=== PATIENT | female | born 1975 | race Caucasian/White ===

== ENCOUNTER 2018-10-19 18:23 | Emergency (ER) ==
[2018-10-19 18:31] VITALS: BP 163/124; TEMP 98; BMI 27.8
[2018-10-19] MEDS ORDERED: SODIUM CHLORIDE 1,000 ML IV STA (19:18)
[2018-10-19] MEDS ORDERED: ZOFRAN 4 MG/2 ML IVP STA ×2 (19:18→20:30)
--- NOTE | 2018-10-19 19:25 | ED.PDOC ---
General ED Provider: Dr. MARIA T IRELAND Chief Complaint: Nausea/Vomiting Stated Complaint: Patient is a 43 year old male who comes to the ER with complaints of nausea, vomiting and diarrhea for 3 weeks or more. She states that she was Unable to keep anything down but only kept gatorade down yesteray. She states that she has lost 10 pounds. Was supposed to be on metoformin but has been out for weeks. She has not see a Primary care doctor for over 2 years. per she is afraid to got the clinic or hospital because of coast. Time Seen by Physician: 19:22 Mode of Arrival: Walk-In Information Source: Family Nursing and Triage Documentation Reviewed and Agree: Yes Does patient meet sepsis criteria?: No System Inflammatory Response Syndrome: Not Applicable Sepsis Protocol: For patient's 13 years and over: Temp is 96.8 and below OR 101 and greater Pulse >90 BPM Resp >20/minute Acutely Altered Mental Status Are patient's symptoms suggestive of a new infection, such as: -Pneumonia -Skin, Soft Tissue -Endocarditis -UTI -Bone, Joint Infection -Implantable Device -Acute Abdominal Infection -Wound Infection -Meningitis -Blood Stream Catheter Infection -Unknown Review of Systems - Review Of Systems Constitutional: Reports: Malaise, Weakness, Loss of appetite Eyes: Reports: No symptoms Ears, Nose, Mouth, Throat: Reports: No symptoms Respiratory: Reports: No symptoms Cardiac: Reports: Lightheadedness GI: Reports: Nausea, Vomiting Musculoskeletal: Reports: Back pain (Chronic ) Neurological: Reports: Anxiety Endocrine: Reports: Increased thirst, Unexplained weight loss Hematologic/Lymphatic: Reports: No symptoms All Other Systems: Reviewed and Negative Past Medical History - Past Medical History Previously Healthy: Yes Endocrine: Reports: DM 2 Cardiovascular: Reports: None Respiratory: Reports: None Hematological: Reports: None Gastrointestinal: Reports: None Genitourinary: Reports: None Neuro/Psych: Reports: None Musculoskeletal: Reports: None Cancer: Reports: None Last Menstrual Period: none - Surgical History General Surgical History: Reports: Hysterectomy, , Hernia Repair - Family History Family History: Reports: Unknown - Social History Smoking Status: Never smoker Hx Substance Use: No Alcohol Screening: None Physical Exam - Physical Exam Appearance: Ill-appearing Ill-appearing: Moderate Pain Distress: None Eyes: KATRINA, EOMI, Conjunctiva clear ENT: Nose normal, Dry mucosa Respiratory: Airway patent, Breath sounds clear, Breath sounds equal, Respirations nonlabored Cardiovascular: Tachycardia GI/: Soft, Nontender, No masses, Bowel sounds normal, No Organomegaly Musculoskeletal: Normal strength Skin: Warm, Dry Neurological: Sensation intact, Motor intact, Alert, Oriented Psychiatric: Affect appropriate, Mood appropriate Critical Care Note - Critical Care Note Total Time (mins): 45 Course - Course Hematology/Chemistry: 10/19/18 19:38 10/19/18 19:38 Orders, Labs, Meds: Lab Review 10/19/18 10/19/18 10/19/18 18:36 19:35 19:38 WBC RBC Hgb Hct MCV MCH MCHC RDW Coeff of Yobani Plt Count Immature Gran % (Auto) Neut % (Auto) Lymph % (Auto) [place] % (Auto) Eos % (Auto) Baso % (Auto) Immature Gran # (Auto) Neut # (Auto) Lymph # (Auto) [place] # (Auto) Eos # (Auto) Baso # (Auto) Sodium Potassium Chloride Carbon Dioxide Anion Gap BUN Creatinine Estimated GFR (MDRD) BUN/Creatinine Ratio Glucose Hemoglobin A1c 9.47 H D Calcium Total Bilirubin AST ALT Alkaline Phosphatase Total Protein Albumin Globulin Albumin/Globulin Ratio Amylase Lipase Urine Color Yellow Urine Clarity Slightly Urine pH 6.0 Ur Specific [place] 1.025 Urine Protein Trace Urine Glucose (UA) Negative Urine Ketones 4+ Urine Blood Trace-intact Urine Nitrite Positive Urine Bilirubin Negative Urine Urobilinogen 2.0 Ur Leukocyte Esterase 2+ Urine Microscopic RBC 2-5 Urine Microscopic WBC 5-10 Ur Squamous Epith Cells 5-10 Amorphous Sediment 1+ Urine Bacteria 2+ Acetone, Qual Trace 10/19/18 10/19/18 19:38 19:38 WBC 11.60 H RBC 4.71 Hgb 13.3 Hct 40.0 MCV 84.9 MCH 28.2 MCHC 33.3 RDW Coeff of Yobani 12.7 Plt Count 201 Immature Gran % (Auto) 0.6 Neut % (Auto) 79.7 Lymph % (Auto) 16.1 [place] % (Auto) 3.4 Eos % (Auto) 0.1 Baso % (Auto) 0.1 Immature Gran # (Auto) 0.1 Neut # (Auto) 9.2 H Lymph # (Auto) 1.9 [place] # (Auto) 0.4 Eos # (Auto) 0.0 Baso # (Auto) 0.0 Sodium 137.4 Potassium 3.20 L Chloride 100.3 Carbon Dioxide 28.7 Anion Gap 11.60 BUN 7.5 Creatinine 0.44 L Estimated GFR (MDRD) 157.00 BUN/Creatinine Ratio 17.04 Glucose 303.5 H Hemoglobin A1c Calcium 8.37 L Total Bilirubin 0.64 AST 19.1 ALT 14.9 Alkaline Phosphatase 71.0 Total Protein 5.96 L Albumin 3.47 L Globulin 2.49 Albumin/Globulin Ratio 1.39 Amylase 36.3 Lipase < 10.0 L Urine Color Urine Clarity Urine pH Ur Specific [place] Urine Protein Urine Glucose (UA) Urine Ketones Urine Blood Urine Nitrite Urine Bilirubin Urine Urobilinogen Ur Leukocyte Esterase Urine Microscopic RBC Urine Microscopic WBC Ur Squamous Epith Cells Amorphous Sediment Urine Bacteria Acetone, Qual Orders Category Date Time Status ED IV/MEDIPORT/POWERPORT .ONCE EMERGENCY 10/19/18 19:18 Active ACETONE, QUALITATIVE Stat LAB 10/19/18 19:38 Completed AMYLASE Stat LAB 10/19/18 19:38 Completed CBC W/ AUTO DIFF Stat LAB 10/19/18 19:38 Completed COMPREHENSIVE METABOLIC PANEL Stat LAB 10/19/18 19:38 Completed HEMOGLOBIN A1C Stat LAB 10/19/18 19:35 Completed LIPASE Stat LAB 10/19/18 19:38 Completed URINALYSIS C & S IF INDICATED Stat LAB 10/19/18 18:36 Completed URINE CULTURE Stat LAB 10/19/18 18:36 Received 0.9 % Sodium Chloride [Saline Flush] MEDS 10/19/18 19:18 Ordered 1 syr IVF PRN PRN Ceftriaxone/D5w 1 gm Premix [Rocephin 1 gm Premix] 1 gm MEDS 10/19/18 19:50 Discontinued Premix 50 ml D5w 1 bag IV ONCE Ceftriaxone/D5w 1 gm Premix [Rocephin 1 gm Premix] 50 MEDS 10/19/18 20:03 Discontinued ml IV .STK-MED Ondansetron HCl/Pf [Zofran 4 mg/2 ml] MEDS 10/19/18 19:18 Discontinued 4 mg IVP ONCE STA Ondansetron HCl/Pf [Zofran 4 mg/2 ml] MEDS 10/19/18 20:30 Discontinued 4 mg IVP ONCE STA Sodium Chloride 0.9% [Sodium Chloride] 1,000 ml MEDS 10/19/18 19:18 Discontinued IV BOLUS Medications Generic Name Dose Route Start Last Admin Trade Name Freq PRN Reason Stop Dose Admin Sodium Chloride 1 syr 10/19/18 19:18 10/19/18 20:34 Saline Flush IVF 1 syr PRN PRN Administration To flush IV Discontinued Medications Generic Name Dose Route Start Last Admin Trade Name Freq PRN Reason Stop Dose Admin Sodium Chloride 1,000 mls @ 1,000 mls/hr 10/19/18 19:18 10/19/18 19:29 Sodium Chloride IV 10/19/18 20:17 1,000 mls/hr BOLUS STA Administration CEFTRIAXONE/D5W 1 GM PREMIX 1 50 mls @ 75 mls/hr 10/19/18 19:50 10/19/18 20: 05 gm/ Dextrose IV 10/19/18 20:29 75 mls/hr ONCE STA Administration Ondansetron HCl 4 mg 10/19/18 19:18 10/19/18 19:29 Zofran 4 Mg/2 Ml IVP 10/19/18 19:19 4 mg ONCE STA Administration Ondansetron HCl 4 mg 10/19/18 20:30 10/19/18 20:34 Zofran 4 Mg/2 Ml IVP 10/19/18 20:31 4 mg ONCE STA Administration Vital Signs: Temp Pulse Resp BP Pulse Ox 10/19/18 18:23 98.0 F 120 H 18 163/124 H 95 Departure - Departure Time of Disposition: 21:27 Disposition: HOME SELF-CARE Discharge Problem: Nausea, Vomiting UTI (urinary tract infection) Qualifiers: Urinary tract infection type: acute cystitis Hematuria presence: with hematuria Qualified Code(s): N30.01 - Acute cystitis with hematuria Hyperglycemia due to type 2 diabetes mellitus Qualifiers: Diabetes mellitus mcfp insulin use: without intermodal customer service use Qualified Code(s ): E11.65 - Type 2 diabetes mellitus with hyperglycemia Instructions: Urinary Tract Infection in Women (ED), Type 2 Diabetes in the Older Adult (ED), Diabetes and Nutrition (ED) Condition: Fair Pt referred to PMD for follow-up: Yes IPMP verified?: No Additional Instructions: Take medications as prescribed Follow up with the CLINIC in 2-3 days return if worse. Prescriptions: Cephalexin [Keflex] 500 mg PO Q8HR #30 capsule Metformin HCl 500 mg PO DAILY #90 tablet Ondansetron HCl [Zofran Tab] 4 mg PO Q8H PRN #14 tablet PRN Reason: Nausea / Vomiting Allergies/Adverse Reactions: Allergies No Known Allergies Allergy (Unverified 12/21/15 09:20) Home Medications: Ambulatory Orders Cephalexin [Keflex] 500 mg PO Q8HR #30 capsule 10/19/18 Metformin HCl 500 mg PO DAILY #90 tablet 10/19/18 Ondansetron HCl [Zofran Tab] 4 mg PO Q8H PRN #14 tablet 10/19/18 Disposition Discussed With: Patient, Family
[2018-10-19] MEDS ORDERED: ROCEPHIN 1 GM PREMIX 1 GM in PREMIX 50 ML D5W 1 BAG IV STA (19:50)
[2018-10-19] MEDS ORDERED: ROCEPHIN 1 GM PREMIX 50 ML IV ONE (20:03)
== END 2018-10-19 21:40 | disposition home or self-care (01) ==
LOC: ED 18:23
DX: N30.01 Acute cystitis with hematuria (principal); E11.65 Type 2 diabetes mellitus with hyperglycemia; R11.2 Nausea with vomiting, unspecified
CPT/HCPCS: 36415; 80053; 81001; 82009; 82150; 83036; 83690; 85025; 87086; 87186; 96361; 96365; 96375; 96376; 99283

== ENCOUNTER 2021-05-05 15:21 | Inpatient (IN) ==
--- NOTE | 2021-05-05 15:37 | ED.PDOC ---
General ED Provider: Dr. MARIA T IRELAND Chief Complaint: Nausea/Vomiting Stated Complaint: Patient is a 46 year old female who was seen here for similar complaints comes back with nausea vomiting but denies any abdominal pain. states unable to keep anything down. Time Seen by Provider: 05/05/21 15:25 Mode of Arrival: Walk-In Information Source: Patient Nursing and Triage Documentation Reviewed and Agree: Yes Does patient meet sepsis criteria?: No System Inflammatory Response Syndrome: Not Applicable Sepsis Protocol: For patient's 13 years and over: Temp is 96.8 and below OR 101 and greater Pulse >90 BPM Resp >20/minute Acutely Altered Mental Status Are patient's symptoms suggestive of a new infection, such as: -Pneumonia -Skin, Soft Tissue -Endocarditis -UTI -Bone, Joint Infection -Implantable Device -Acute Abdominal Infection -Wound Infection -Meningitis -Blood Stream Catheter Infection -Unknown Review of Systems Review Of Systems Constitutional: Reports No symptoms Eyes: Reports No symptoms Ears, Nose, Mouth, Throat: Reports No symptoms Respiratory: Reports No symptoms Cardiac: Reports No symptoms GI: Reports Nausea and Vomiting; Denies Abdominal pain Musculoskeletal: Reports No symptoms Skin: Reports No symptoms Neurological: Reports Anxiety Endocrine: Reports No symptoms Hematologic/Lymphatic: Reports No symptoms All Other Systems: Reviewed and Negative [facility] Medical History Diabetes mellitus Hypertension Surgical History History of gastrointestinal surgery Status post hysterectomy Female Reproductive History Menstrual Hx Hysterectomy: Yes Hx Tubal Ligation: No Physical Exam Physical Exam Appearance: Reports Ill-appearing Ill-appearing: Moderate Pain Distress: None Eyes: Reports Conjunctiva clear ENT: Reports Nose normal and Oropharynx normal Neck: Not Examined Respiratory: Reports Airway patent, Breath sounds clear and Breath sounds equal Cardiovascular: Reports No rub, No murmur and Tachycardia GI/: Reports Soft, Nontender and No masses Musculoskeletal: Reports Normal strength and ROM intact Skin: Reports Warm and Dry Neurological: Reports Sensation intact, Motor intact, Alert and Oriented Psychiatric: Reports Anxious Critical Care Note Critical Care Note Total Critical Care Time (mins): 40 Course Course Hematology/Chemistry: 05/05/21 15:50 05/05/21 15:50 Orders, Labs, Meds: Lab Review 05/05/21 05/05/21 15:50 15:50 WBC 15.33 H RBC 4.89 Hgb 13.2 Hct 39.5 MCV 80.8 L MCH 27.0 MCHC 33.4 RDW Coeff of Yobani 13.9 Plt Count 233 Immature Gran % (Auto) 0.7 Neut % (Auto) 76.6 H Lymph % (Auto) 17.6 [place] % (Auto) 5.0 Eos % (Auto) 0.0 Baso % (Auto) 0.1 Neut # (Auto) 11.8 H Lymph # (Auto) 2.7 [place] # (Auto) 0.8 Eos # (Auto) 0.0 Baso # (Auto) 0.0 Immature Gran # (Auto) 0.1 Sodium 143.5 Potassium 3.63 Chloride 106.6 Carbon Dioxide 23.1 D Anion Gap 17.43 BUN 13.5 Creatinine 0.67 Estimated GFR (MDRD) 95.00 BUN/Creatinine Ratio 20.14 Glucose 308.8 H Calcium 9.28 Total Bilirubin 0.68 AST 24.0 ALT 22.4 Alkaline Phosphatase 84.1 Total Protein 7.40 Albumin 4.62 Globulin 2.78 Albumin/Globulin Ratio 1.66 Amylase 46.1 Lipase 11.8 L Orders Category Date Time Status ED IV/MEDIPORT/POWERPORT .ONCE EMERGENCY 05/05/21 15:39 Active AMYLASE Stat LAB 05/05/21 15:50 Completed CBC W/ AUTO DIFF Stat LAB 05/05/21 15:50 Completed COMPREHENSIVE METABOLIC PANEL Stat LAB 05/05/21 15:50 Completed LIPASE Stat LAB 05/05/21 15:50 Completed MISCELLANEOUS SEND OUT Stat LAB 05/05/21 16:18 Ordered URINALYSIS C & S IF INDICATED Stat LAB 05/05/21 15:39 Uncollected 0.9 % Sodium Chloride [Saline Flush] MEDS 05/05/21 15:39 Ordered 1 syr IVF PRN PRN Labetalol HCl [Trandate] MEDS 05/05/21 16:03 Discontinued 20 mg IVP ONCE STA Pantoprazole Sodium [Protonix IV] MEDS 05/05/21 15:39 Discontinued 40 mg IVP ONCE STA Promethazine HCl [Phenergan 25 mg/ml Vial] MEDS 05/05/21 15:44 Discontinued 25 mg .ROUTE .STK-MED ONE Promethazine HCl [Phenergan 25 mg/ml Vial] 25 mg MEDS 05/05/21 15:39 Active 0.9 % Sodium Chloride [Sodium Chloride] 50 ml IV ONCE Ringers Lactated Solution [Lactated Ringers] 1,000 ml MEDS 05/05/21 15:39 Active IV BOLUS Medications Generic Name Dose Route Start Last Admin Trade Name Mckenna PRN Reason Stop Dose Admin Lactated Ringer's 1,000 mls @ 1,000 mls/hr 05/05/21 15:39 05/05/21 15:56 Lactated Ringers IV 05/05/21 16:38 1,000 mls/hr BOLUS STA Administration Promethazine HCl 25 mg/ Sodium 51 mls @ 75 mls/hr 05/05/21 15:39 05/05/21 15:51 Chloride IV 05/05/21 16:19 75 mls/hr ONCE STA Administration Sodium Chloride 1 syr 05/05/21 15:39 05/05/21 15:52 0.9% Sodium Chloride 10 Ml Disp.Syrin IVF 1 syr PRN PRN Administration To flush IV Discontinued Medications Generic Name Dose Route Start Last Admin Trade Name Mckenna PRN Reason Stop Dose Admin Labetalol HCl 20 mg 05/05/21 16:03 05/05/21 16:07 Labetalol Hcl 20 Mg/4 Ml Disp.Syrin IVP 05/05/21 16:04 20 mg ONCE STA Administration Pantoprazole Sodium 40 mg 05/05/21 15:39 05/05/21 15:52 Pantoprazole Sodium 40 Mg Vial IVP 05/05/21 15:40 40 mg ONCE STA Administration Vital Signs: Temp Pulse Resp BP Pulse Ox 05/05/21 15:25 97.7 F 120 H 18 229/111 H 99 Discharge Plan Discharge Prescriptions: No Action lisinopril 10 mg Tablet 10 mg PO DAILY 0RF ED Provider: MARIA T IRELAND Physician Progress Note: []
[2021-05-05] MEDS ORDERED: LACTATED RINGERS 1,000 ML IV STA (15:39)
[2021-05-05] MEDS ORDERED: PHENERGAN 25 MG/ML VIAL 25 MG in SODIUM CHLORIDE 50 ML IV STA (15:39)
[2021-05-05] MEDS ORDERED: PROTONIX IV IVP STA (15:39)
[2021-05-05] MEDS ORDERED: PHENERGAN 25 MG/ML VIAL ONE (15:44)
[2021-05-05 15:54] LABS: BASOPHILS % (AUTO) 0.1 % (0.0-3.0); HEMATOCRIT 39.5 % (37.0-47.0); HEMOGLOBIN 13.2 g/dl (12.0-16.0); IMMATURE GRANULOCYTE # (AUTO) 0.1 (0.0-1.0); IMMATURE GRANULOCYTE % (AUTO) 0.7 % (0.0-5.0); LYMPHOCYTES # (AUTO) 2.7 K/uL (0.60-3.4); LYMPHOCYTES % (AUTO) 17.6 (10.0-50.0); MEAN CORPUSCULAR HGB CONC 33.4 (31.8-35.4); MEAN CORPUSCULAR VOLUME 80.8 fl (81.0-99.0); MONOCYTES # (AUTO) 0.8 K/uL (0.4-2.0); NEUTROPHILS # (AUTO) 11.8 K/ul (2.0-6.9); NEUTROPHILS % (AUTO) 76.6 % (42.2-75.2); PLATELET COUNT 233 10^3/uL (140-440); RDW COEFFICIENT OF VARIATION 13.9 % (11.6-14.8); RED BLOOD COUNT 4.89 10^6/ul (4.20-5.40); WHITE BLOOD COUNT 15.33 K/ul (4.6-10.2)
[2021-05-05] MEDS ORDERED: TRANDATE IVP STA (16:03)
[2021-05-05 16:05] LABS: ALANINE AMINOTRANSFERASE 22.4 U/L (0-35); ALBUMIN 4.62 g/dL (3.5-5.0); ALKALINE PHOSPHATASE 84.1 U/L (38-126); AMYLASE 46.1 U/L (30-110); BILIRUBIN,TOTAL 0.68 mg/dL (0.2-1.3); BLOOD UREA NITROGEN 13.5 mg/dL (7-17); CALCIUM 9.28 mg/dL (8.4-10.2); CARBON DIOXIDE 23.1 mmol/L (22-30.0); CHLORIDE 106.6 mmol/L (98-107); CREATININE 0.67 mg/dL (0.60-1.30); GLUCOSE 308.8 mg/dL (74-106); LIPASE 11.8 U/L (23-300); POTASSIUM 3.63 mmol/L (3.5-5.1); SODIUM 143.5 mmol/L (134.5-145); TOTAL PROTEIN 7.4 g/dL (6.3-8.2)
[2021-05-05] MEDS ORDERED: VASOTEC IV IVP STA (17:05)
[2021-05-05] MEDS ORDERED: SODIUM CHLORIDE 1,000 ML IV STA (17:12)
[2021-05-05] MEDS ORDERED: TYLENOL PO PRN (17:29)
[2021-05-05] MEDS ORDERED: MORPHINE 2 MG/ML VIAL IVP PRN (17:29)
[2021-05-05] MEDS: D5%-NS-KCL 20 MEQ/L IV SOL 1,000 ML IV SCH (17:50)
[2021-05-05] MEDS: CARDENE 20 MG/200 ML NACL 20 MG/200 ML BAG IV SCH (17:50)
[2021-05-05] MEDS ORDERED: TRANDATE IV SCH (18:00)
[2021-05-05] MEDS ORDERED: SODIUM CHLORIDE IV SCH (18:00)
[2021-05-05 18:13] VITALS: BMI 31.2
[2021-05-05 18:40] LABS: BILIRUBIN,URINE Negative (NEGATIVE); CLARITY,URINE Clear (CLEAR); COLOR,URINE Yellow (YELLOW); GLUCOSE, URINE (UA) 2+ (NEGATIVE); KETONES,URINE 4+ (NEGATIVE); LEUKOCYTE ESTERASE ,URINE Negative (NEGATIVE); NITRITE,URINE Negative (NEGATIVE); PH,URINE 5.5 (5-9); PROTEIN,URINE 2+ (NEGATIVE); URINE, BLOOD Trace-intact (NEGATIVE); UROBILINOGEN,URINE 0.2 (0.2)
[2021-05-05 18:51] LABS: BACTERIA,URINE TRACE (NOT PRESENT); URINE RBC, MICROSCOPIC 0-2 (0-2)
[2021-05-05] MEDS: SODIUM CHLORIDE 1,000 ML IV SCH (20:15)
[2021-05-05] MEDS: ZESTRIL PO SCH (20:45)
[2021-05-05] MEDS: HUMULIN R SUBCUT PRN (20:46)
[2021-05-05 23:51] LABS: CREATINE KINASE 24.2 U/L (30-135)
[2021-05-06 00:04] LABS: TROPONIN I 0.013 ng/ml (0.0000-0.120)
[2021-05-06] MEDS ORDERED: VISTARIL PO ONE (00:47)
[2021-05-06] MEDS: VASOTEC IV IVP PRN (02:11)
[2021-05-06] MEDS: ZOFRAN 4 MG/2 ML IVP PRN ×2 (03:27→20:34)
[2021-05-06] MEDS ORDERED: HYDROCHLOROTHIAZIDE PO STA (03:58)
[2021-05-06] MEDS: D5%-NS-KCL 20 MEQ/L IV SOL 1,000 ML IV SCH ×4 (04:25→20:32)
[2021-05-06] MEDS: CARDENE 20 MG/200 ML NACL 20 MG/200 ML BAG IV SCH ×2 (05:50→09:59)
[2021-05-06 05:56] LABS: BASOPHILS % (AUTO) 0.1 % (0.0-3.0); HEMOGLOBIN 11.7 g/dl (12.0-16.0); IMMATURE GRANULOCYTE # (AUTO) 0.1 (0.0-1.0); IMMATURE GRANULOCYTE % (AUTO) 0.5 % (0.0-5.0); LYMPHOCYTES # (AUTO) 2.3 K/uL (0.60-3.4); LYMPHOCYTES % (AUTO) 16.9 (10.0-50.0); MEAN CORPUSCULAR HEMOGLOBIN 26.5 pg (27.0-31.0); MEAN CORPUSCULAR HGB CONC 32.5 (31.8-35.4); MEAN CORPUSCULAR VOLUME 81.6 fl (81.0-99.0); MONOCYTES # (AUTO) 0.6 K/uL (0.4-2.0); MONOCYTES % (AUTO) 4.4 (0-10); NEUTROPHILS # (AUTO) 10.6 K/ul (2.0-6.9); NEUTROPHILS % (AUTO) 78.1 % (42.2-75.2); PLATELET COUNT 191 10^3/uL (140-440); RDW COEFFICIENT OF VARIATION 14.1 % (11.6-14.8); RED BLOOD COUNT 4.41 10^6/ul (4.20-5.40)
[2021-05-06 06:07] LABS: CREATINE KINASE 31.4 U/L (30-135)
[2021-05-06 06:17] LABS: BLOOD UREA NITROGEN 10.5 mg/dL (7-17); CALCIUM 8.61 mg/dL (8.4-10.2); CARBON DIOXIDE 25.3 mmol/L (22-30.0); CHLORIDE 110.6 mmol/L (98-107); CREATININE 0.61 mg/dL (0.60-1.30); GLUCOSE 307.3 mg/dL (74-106); POTASSIUM 3.52 mmol/L (3.5-5.1); SODIUM 144.3 mmol/L (134.5-145)
[2021-05-06 06:23] LABS: TROPONIN I < 0.012 ng/ml (0.0000-0.120)
[2021-05-06] MEDS: HUMULIN R SUBCUT PRN ×3 (06:25→21:05)
[2021-05-06] MEDS ORDERED: REGLAN IVP ONE (08:03)
[2021-05-06] MEDS: SODIUM CHLORIDE 1,000 ML IV SCH ×3 (08:58→17:11)
[2021-05-06] MEDS ORDERED: ZESTRIL PO SCH (09:00)
[2021-05-06] MEDS: ZESTRIL PO SCH (10:22)
[2021-05-06] MEDS ORDERED: REGLAN ONE (13:17)
[2021-05-06] MEDS ORDERED: PROTONIX IV ONE (13:17)
[2021-05-06] MEDS: REGLAN IVP PRN (18:01)
[2021-05-06] MEDS ORDERED: TRANDATE ONE (18:16)
[2021-05-06] MEDS ORDERED: TRANDATE IVP ONE (20:50)
[2021-05-07] MEDS: REGLAN IVP PRN ×2 (03:00→09:05)
[2021-05-07] MEDS ORDERED: TRANDATE IVP ONE ×2 (04:08→06:07)
[2021-05-07] MEDS: D5%-NS-KCL 20 MEQ/L IV SOL 1,000 ML IV SCH ×2 (04:20→13:08)
[2021-05-07 05:19] LABS: BASOPHILS % (AUTO) 0.1 % (0.0-3.0); HEMATOCRIT 35.2 % (37.0-47.0); HEMOGLOBIN 11.5 g/dl (12.0-16.0); IMMATURE GRANULOCYTE # (AUTO) 0.1 (0.0-1.0); IMMATURE GRANULOCYTE % (AUTO) 0.6 % (0.0-5.0); LYMPHOCYTES # (AUTO) 2.3 K/uL (0.60-3.4); LYMPHOCYTES % (AUTO) 20.3 (10.0-50.0); MEAN CORPUSCULAR HEMOGLOBIN 26.8 pg (27.0-31.0); MEAN CORPUSCULAR HGB CONC 32.7 (31.8-35.4); MEAN CORPUSCULAR VOLUME 82.1 fl (81.0-99.0); MONOCYTES # (AUTO) 0.8 K/uL (0.4-2.0); MONOCYTES % (AUTO) 6.7 (0-10); NEUTROPHILS # (AUTO) 8.1 K/ul (2.0-6.9); NEUTROPHILS % (AUTO) 72.3 % (42.2-75.2); PLATELET COUNT 188 10^3/uL (140-440); RDW COEFFICIENT OF VARIATION 14.5 % (11.6-14.8); RED BLOOD COUNT 4.29 10^6/ul (4.20-5.40); WHITE BLOOD COUNT 11.26 K/ul (4.6-10.2)
[2021-05-07 05:31] LABS: BLOOD UREA NITROGEN 4.4 mg/dL (7-17); CALCIUM 8.38 mg/dL (8.4-10.2); CARBON DIOXIDE 28.2 mmol/L (22-30.0); CHLORIDE 108.6 mmol/L (98-107); CREATININE 0.54 mg/dL (0.60-1.30); GLUCOSE 316.6 mg/dL (74-106); POTASSIUM 3.22 mmol/L (3.5-5.1); SODIUM 142.5 mmol/L (134.5-145)
[2021-05-07] MEDS: HUMULIN R SUBCUT PRN ×4 (05:49→20:45)
--- NOTE | 2021-05-07 06:37 | PCM.PROG ---
Date Seen by Provider: 05/06/21 Time Seen by Provider: 09:00 Subjective: Admitted 05/05 for accelerated HTN and refractory vomiting. She feels better intermittently with medication. Objective: Vitals: T=99.1 F, P=106, R=12, FF=627/96, SPO2=94 HEENT: [WNL] Neck: [supple] Lungs: [clear] CVS: RRR , no m[] Abdomen: benign[] Extremities: [intact] Neurological: [intact] Skin: [wnl] Lab/Tests/Diagnostic Imaging: [refer to chart] (1) Accelerated hypertension: Status: Acute Code(s): I10 - Essential (primary) hypertension SNOMED Code(s): 12266514 Assessment: Tx has varied depending on the ability to keep down oral med. or not. BP is quite labile and easily approaches 200 sys. without intervention, HR can go to 120. Has been on cardene drip, nurses are going to try and convert her over to oral med, in the meantime will use IV labetalol prn. The HTN is a new problem and she needs a work-up for secondary hypertension and I think she should be transferred for this, she does not want that. I can outline an approach to sec ondary HTN, but I still think best to transfer her to a larger hospital. 1. R/O primary hyperaldosteronism - Renin and aldosterone levels could be ordered - send out tests. She does tend to run a low potassium which would be c/w that, although vomiting will lower K as well. 2. R/O fibromuscular dysplasia of renal arteries/Renal artery stenosis- MRA of renal arteries best test. Other option CTA or doppler US. Lisinopril will worsen BP in this type of patient. 3. R/O pheochromocytoma - 24 hour urine metanephrine, could do protein collection at the same time. 4. Less likely - [place] syndrome, thyroid disorder, ANGELA. (2) Nausea and vomiting: Status: Acute Code(s): R11.2 - Nausea with vomiting, unspecified SNOMED Code(s): 56860177 Assessment: This has been a challenge. Reglan works best, but still marginal results. PPI started. Part of problem is likely diabetic gastroparesis. (3) DM type 2 (diabetes mellitus, type 2): Status: Acute Code(s): E11.9 - Type 2 diabetes mellitus without complications SNOMED Code(s): 72262750 Assessment: Currently on a sliding scale. She has been a T2DM for about 10 years. Plan: Refractory HTN with N and V. I think best to transfer her to a larger hospital - have not ordered work-up because I am hoping she will change her mind and allow a transfer. Otherwise, continue current tx.
[2021-05-07] MEDS: PROTONIX IV IVP SCH ×2 (08:42→09:05)
[2021-05-07] MEDS: ZESTRIL PO SCH ×2 (08:45→09:15)
[2021-05-07] MEDS ORDERED: ZESTRIL PO STA (09:31)
[2021-05-07] MEDS: PHENERGAN 25 MG/ML VIAL 25 MG in SODIUM CHLORIDE 50 ML IV PRN ×2 (10:16→18:02)
[2021-05-07] MEDS: CARDENE 20 MG/200 ML NACL 20 MG/200 ML BAG IV SCH ×2 (10:19→20:10)
[2021-05-07] MEDS: [UNRECOGNIZED DRUG - MIXTURE] IV SCH ×3 (13:07→22:18)
[2021-05-07] MEDS: VASOTEC IV IVP PRN (17:01)
[2021-05-07] MEDS ORDERED: HYDRALAZINE HCL IVP ONE (17:45)
[2021-05-07] MEDS ORDERED: PHENERGAN 25 MG/ML VIAL ONE (17:54)
[2021-05-07] MEDS: TRANDATE PO SCH (18:02)
[2021-05-07] MEDS ORDERED: POTASSIUM CHLORIDE 20 MEQ VIAL- ADDITIVE ONLY IV ONE (22:12)
[2021-05-08] MEDS: HUMULIN R SUBCUT PRN ×4 (05:43→20:37)
[2021-05-08] MEDS ORDERED: POTASSIUM CHLORIDE 20 MEQ VIAL- ADDITIVE ONLY IV ONE (06:07)
[2021-05-08] MEDS: CARDENE 20 MG/200 ML NACL 20 MG/200 ML BAG IV SCH ×4 (06:09→21:53)
[2021-05-08] MEDS: [UNRECOGNIZED DRUG - MIXTURE] IV SCH ×2 (06:24→17:46)
[2021-05-08] MEDS: ZESTRIL PO SCH (08:48)
[2021-05-08] MEDS: TRANDATE PO SCH ×2 (08:48→20:36)
[2021-05-08] MEDS: PROTONIX IV IVP SCH (08:52)
[2021-05-08 10:10] LABS: BLOOD UREA NITROGEN 4.2 mg/dL (7-17); CALCIUM 7.9 mg/dL (8.4-10.2); CARBON DIOXIDE 30.7 mmol/L (22-30.0); CREATININE 0.53 mg/dL (0.60-1.30); GLUCOSE 288.6 mg/dL (74-106); MAGNESIUM 1.68 mg/dL (1.6-2.3); POTASSIUM 3.54 mmol/L (3.5-5.1)
--- NOTE | 2021-05-08 11:44 | US ---
EXAM: Renal ultrasound HISTORY: Resistant hypertension COMPARISON: None TECHNIQUE: Renal ultrasound was performed FINDINGS: Right kidney measures 4.5 x 3.9 x 9.2 cm. Left kidney measures 4.9 x 4.2 x 11.7 cm. Shirin l cortical echogenicity is normal. No hydronephrosis or renal calculus large enough to cause acousti c shadowing. Bladder grossly unremarkable. IMPRESSION: Sonographically normal kidneys.
--- NOTE | 2021-05-08 11:52 | US ---
EXAM: RENAL ARTERY ULTRASOUND HISTORY: Resistant hypertension. Fibromuscular dysplasia TECHNIQUE: Sonography of the renal vasculature and kidneys was performed. Callahan scale and color and spectral Doppler images were performed. Images were obtained and stored in a permanent archive. COMPARISON: None. FINDINGS: Right renal artery: - Ostium: PSV of 1.8 m/s. RA/AO ratio of 1.2. - Mid: PSV of 2.0 m/s. RA/AO ratio of 1.3. - Renal hilum: PSV of 0.8 m/s. RA/AO ratio of 0.5. - Arcuate: PSV of 0.3 m/s. RI of 0.61. Right renal vein: Patent. Pulsatile flow. Left renal artery: - Ostium: Not visualized due to gas. - Mid: Not visualized due to gas. - Renal hilum: PSV of 0.9 m/s. RA/AO ratio of 0.9. - Arcuate: PSV of 0.2 m/s. RI of 0.60. Left renal vein: Patent. Pulsatile flow. Aorta: Patent. PSV of 1.5 m/s. Diameter of 1.34 cm. IVC: Patent. Right Kidney: - Renal length: 9.2 cm. Left Kidney: - Renal length: 11.7 cm. IMPRESSION: - Limited study due patient's body habitus and presence of bowel gas. - Limited evaluation of the left renal artery. Elevated peak systolic velocity in the proximal and m id right renal artery. No tardus parvus waveforms. Normal ratio. Velocity can be seen with renal a rtery stenosis noting difficult study. CTA can be obtained for further evaluation as clinically adam cated.
[2021-05-08] MEDS: PHENERGAN 25 MG/ML VIAL 25 MG in SODIUM CHLORIDE 50 ML IV PRN (13:03)
--- NOTE | 2021-05-08 15:45 | CT ---
EXAM: CTA abdomen and pelvis without and with IV contrast HISTORY: Hypertension. TECHNIQUE: Multi-slice transaxial helical images of the abdomen and pelvis are acquiredwithout and f ollowing the administration of intravenous contrast according to a standard angiogram protocol. Yoanna nal and sagittal MIP images as well as 3-D volume rendered images are recreated from the source data. CT was performed using dose optimization techniques such as automated exposure control and/or mA/kV adjustment according to patient size. COMPARISON: CT abdomen pelvis 05/04/2021 FINDINGS: VASCULAR: The aorta is normal in caliber. No atherosclerosis. The origins of the celiac trunk, SMA, SUSSY and b oth renal arteries are patent. No stenosis in either renal artery. Bilateral iliac arteries are pat ent. Visualized bilateral femoral arteries are patent. Renal arteries and visualized renal veins ar e patent. NONVASCULAR: Liver: Possible hepatic steatosis. Correlation with LFTs recommended. Gallbladder: Not visualized may be small surgically absent. Bile ducts: No intra or extrahepatic biliary ductal dilatation. Pancreas: Atrophic changes. The main pancreatic duct is not dilated. Spleen: The spleen is not enlarged. Adrenal glands: Within normal limits. Kidneys: No hydronephrosis. No renal calculi. Hypodensities in both kidneys; right greater than le ft which can be seen with pyelonephritis versus infarcts. There is mild surrounding soft tissue stra nding. Correlation with lab values and physical exam recommended. Ureters: Within normal limits Urinary bladder: Within normal limits Reproductive organs: Hysterectomy. Peritoneum: No ascites or free intraperitoneal air. Gastrointestinal tract: Small hiatal hernia. Normal caliber. Right colonic wall thickening with gracia rounding inflammatory changes findings are concerning for colitis. Lymph nodes: No lymphadenopathy. Abdominal wall: Within normal limits. Osseous structures: No acute findings. Lower thorax: Trace bilateral pleural effusions with adjacent atelectatic changes and/or pneumonia. IMPRESSION: - No stenosis in either renal artery. Renal arteries and visualized renal veins are patent. - Hypodensities in both kidneys; right greater than left which can be seen with pyelonephritis versus infarcts. There is mild surrounding soft tissue stranding. Correlation with lab values and physica l exam recommended. - Right colonic wall thickening with surrounding inflammatory changes findings are concerning for col itis. - Trace bilateral pleural effusions with adjacent atelectatic changes and/or pneumonia. - Possible hepatic steatosis. Correlation with LFTs recommended. Communication: Findings in the impression were discussed with Dr. Whitman by Dr. Alvarado at 3:[address] scans are performed using dose optimization techniques as appropriate to the performed exam an d include at least one of the following: Automated exposure control, adjustment of the mA and/or kV according t o size, and the use of iterative reconstruction technique.
[2021-05-08] MEDS: D5%-NS-KCL 40 MEQ/L IV SOL 1,000 ML IV SCH ×2 (16:01→23:50)
[2021-05-08] MEDS: REGLAN IVP PRN (18:04)
--- NOTE | 2021-05-08 19:31 | PCM.PROG ---
Date Seen by Provider: 05/08/21 Time Seen by Provider: 12:00 Subjective: Date of admit 05/05/21. Feels about the same. Frequent GI upset and high BP. Objective: Vitals: T=98.6 F, P=121, R=18, SN=563/85, SPO2=94 HEENT: [WNL] Neck: supple[] Lungs: [clear] CVS: [RRR] Abdomen: [soft] Extremities: [intact] Neurological: [intact] Skin: [wnl] Lab/Tests/Diagnostic Imaging: [see chart] (1) Accelerated hypertension: Status: Acute Code(s): I10 - Essential (primary) hypertension SNOMED Code(s): 41235435 Assessment: Currently on cardene drip and some oral med, tends to vomit pills. BP under marginal control. Evalaution for secondary HTN - Renal US unremarkable, limited. CTA renal - no JENNIE or fibromuscular dysplasia reported. Renal parenchyma reveals infacts vs infxn. Renin and aldosterone tests pending. 24 hour urine for meta pending. (2) Nausea and vomiting: Status: Acute Code(s): R11.2 - Nausea with vomiting, unspecified SNOMED Code(s): 95199563 Assessment: Still with prone to emesis. Reglan helps. Likely diabetic gastroparesis. No gastric emptying studies done. (3) DM type 2 (diabetes mellitus, type 2): Status: Acute Code(s): E11.9 - Type 2 diabetes mellitus without complications SNOMED Code(s): 76759726 Assessment: Marginal control on a less than robust sliding scale. (4) Renal disorder: Status: Acute Code(s): N28.9 - Disorder of kidney and ureter, unspecified SNOMED Code(s): 45260471 Assessment: Renal parenchyma abnormal - infact vs pyelo, initial UA showed no infection, need to repeat. This may be contributing to the refractory HTN. She needs as nephrology/urology evaluation - will try and arrange a transfer. In case a clotting issue, should order echo to eval for cardiac thrombi. Start lovenox. Plan: Continue current management. Try and arrange a transfer. Spoke to [facility], they declined. Family would like [place].
[2021-05-08] MEDS: LOVENOX SUBCUT SCH (20:36)
--- NOTE | 2021-05-08 23:15 | PCM.PROG ---
Date Seen by Provider: 05/07/21 Time Seen by Provider: 09:30 Subjective: Denies new complaints. Continues to experience Nausea with po intake. No emesis today Objective: Vitals: T=99.0 F, P=101, R=16, TK=623/68, SPO2=95 HEENT: Clear Neck: Soft supple, Neg JVD/Neg HJR Lungs: CTA-Af CVS: HR RRR no murmur; peripheral pulses symmetrically full and equal Abdomen: Soft non tender Extremities: Neg edema Neurological: AAO X 3; No o=focal motor or sensory deficit Skin: wnl Lab/Tests/Diagnostic Imaging: pending (1) Accelerated hypertension: Status: Acute Code(s): I10 - Essential (primary) hypertension SNOMED Code(s): 93850822 (2) Nausea and vomiting: Status: Acute Code(s): R11.2 - Nausea with vomiting, unspecified SNOMED Code(s): 43544678 (3) DM type 2 (diabetes mellitus, type 2): Status: Acute Code(s): E11.9 - Type 2 diabetes mellitus without complications SNOMED Code(s): 94460374 (4) Renal disorder: Status: Acute Code(s): N28.9 - Disorder of kidney and ureter, unspecified SNOMED Code(s): 09688876 Plan: Review diagnostic testing\Additional therapy for tx Hypertension( IV Hydralazine) Consider Transfer for Nephrology,cardiology consult
[2021-05-09] MEDS: CARDENE 20 MG/200 ML NACL 20 MG/200 ML BAG IV SCH (04:30)
[2021-05-09] MEDS: REGLAN IVP PRN (05:30)
[2021-05-09] MEDS: HUMULIN R SUBCUT PRN ×3 (06:29→21:06)
[2021-05-09 07:57] LABS: BILIRUBIN,URINE Negative (NEGATIVE); CLARITY,URINE Clear (CLEAR); COLOR,URINE Yellow (YELLOW); GLUCOSE, URINE (UA) 2+ (NEGATIVE); KETONES,URINE 1+ (NEGATIVE); LEUKOCYTE ESTERASE ,URINE Trace (NEGATIVE); NITRITE,URINE Positive (NEGATIVE); PH,URINE 5.5 (5-9); PROTEIN,URINE Negative (NEGATIVE); URINE, BLOOD Negative (NEGATIVE)
[2021-05-09 08:08] LABS: BACTERIA,URINE 4+ (NOT PRESENT)
[2021-05-09] MEDS: PROTONIX IV IVP SCH (08:27)
[2021-05-09] MEDS: ZESTRIL PO SCH (08:27)
[2021-05-09] MEDS: TRANDATE PO SCH ×2 (08:27→21:06)
[2021-05-09] MEDS: LOVENOX SUBCUT SCH (08:27)
[2021-05-09] MEDS: D5%-NS-KCL 40 MEQ/L IV SOL 1,000 ML IV SCH ×2 (09:09→22:28)
[2021-05-09] MEDS: ROCEPHIN 1 GM/50 ML D5W 1 GM/50 ML BAG IV SCH (10:58)
[2021-05-09] MEDS: COZAAR PO SCH ×2 (11:07→21:06)
--- NOTE | 2021-05-09 12:02 | ECHO2D ---
Date of Exam: 05/09/2021 Ordering Physician: DR. BOYKIN/ HOSPITALIST Room #: [id number] Reason for Echo: UNCONTROLLED HTN M-Mode Normal Adult Results LV Dimensions Normal Adult Results AoV Opening excursions >1.6 >1.6 LVEDD-base- 3.5-5.8 4.1 Ao root dimensions 2.0-3.7 2.7 LVESD-base- 3.1-4.6 L. Atrium dimensions 1.9-3.8 4.0 Post. Wall thickness 0.8-1.1 1.2 IV septum (thickness) 0.7-1.2 1.7 Post. Wall excursion 0.72-1.3 NORMAL Septal motion NORMAL Systolic motion R. Ventricular cavity 1.5-2.0 NORMAL LVEF 60% 68% Paradoxical septal wall motion NORMAL 2-D : 2-D M Mode Echocardiogram was performed using apical four chamber and left parasternal long and short axis views. Mitral, tricuspid and aortic valves appear to be normal. Contractility of the left ventricle seems to be normal, so is the cavity size. ENLARGED LEFT ATRIAL CAVITY SIZE. Aortic root appears to be normal. There is no pericardial effusion. There is no thrombus noted in the left ventricle or left atrial cavity. M-MODE: MV: NORMAL AV: NORMAL TV: NORMAL PV: CHAMBER SIZE: ENLARGED LEFT ATRIAL CAVITY WALL MOTION: NORMAL PERICARDIUM: NORMAL INTERPRETATION: 1. LEFT VENTRICLE HYPERTROPHY BORDERLINE WITH BORDERLINE LEFT ATRIAL CAVITY ENLARGEMENT 2. NORMAL VALVES 3. NORMAL LEFT VENTRICLE CONTRACTILITY AND LEFT VENTRICLE SIZE MTDD
[2021-05-09] MEDS: REGLAN PO SCH ×2 (16:29→21:06)
[2021-05-09] MEDS: CATAPRES PO PRN (17:27)
--- NOTE | 2021-05-09 20:32 | PCM.PROG ---
Date Seen by Provider: 05/09/21 Time Seen by Provider: 15:00 Subjective: Date of admit 05/05/21 She feels better, no vomiting, no pain. Objective: Vitals: T=98.7 F, P=96, R=16, FQ=513/85, SPO2=97 HEENT: [wnl] Neck: [WNL Lungs: [WNL] CVS: WNL[] Abdomen: [soft] Extremities: [intact] Neurological: intact[] Skin: wnl[] Lab/Tests/Diagnostic Imaging: charted[] (1) Accelerated hypertension: Status: Acute Code(s): I10 - Essential (primary) hypertension SNOMED Code(s): 55792261 Assessment: BP under better control, been able to stop IV BP med, monitor (2) Nausea and vomiting: Status: Acute Code(s): R11.2 - Nausea with vomiting, unspecified SNOMED Code(s): 63877515 Assessment: Resolved, eating, no vomiting, reglan po, diabetic gastroparesis (3) DM type 2 (diabetes mellitus, type 2): Status: Acute Code(s): E11.9 - Type 2 diabetes mellitus without complications SNOMED Code(s): 39427662 Assessment: Moderate BS control, she was on no med prior to admit, needs to meet with menhaden vessel pilot, insulin instructions (4) Renal disorder: Status: Acute Code(s): N28.9 - Disorder of kidney and ureter, unspecified SNOMED Code(s): 78044537 Assessment: Discussed with harness maker today, likely had ischemic infarcts from severe HTN, cardiac echo neg, no need for anticoagulant, did not need to transfer, just adjust med Plan: Transition to oral med for HTN and GI. Tomorrow check on any pending tests, may be able to be d/c tomorrow.
[2021-05-10] MEDS: CATAPRES PO PRN (05:11)
[2021-05-10 05:44] LABS: HEMATOCRIT 33.3 % (37.0-47.0); HEMOGLOBIN 10.7 g/dl (12.0-16.0); IMMATURE GRANULOCYTE % (AUTO) 0.4 % (0.0-5.0); LYMPHOCYTES # (AUTO) 2.6 K/uL (0.60-3.4); LYMPHOCYTES % (AUTO) 31.1 (10.0-50.0); MEAN CORPUSCULAR HEMOGLOBIN 26.7 pg (27.0-31.0); MEAN CORPUSCULAR HGB CONC 32.1 (31.8-35.4); MONOCYTES # (AUTO) 0.6 K/uL (0.4-2.0); MONOCYTES % (AUTO) 6.8 (0-10); NEUTROPHILS # (AUTO) 5.2 K/ul (2.0-6.9); NEUTROPHILS % (AUTO) 61.7 % (42.2-75.2); PLATELET COUNT 148 10^3/uL (140-440); RDW COEFFICIENT OF VARIATION 14.4 % (11.6-14.8); RED BLOOD COUNT 4.01 10^6/ul (4.20-5.40); WHITE BLOOD COUNT 8.49 K/ul (4.6-10.2)
[2021-05-10] MEDS: REGLAN PO SCH ×2 (05:54→11:34)
[2021-05-10 06:03] LABS: ALANINE AMINOTRANSFERASE 34.6 U/L (0-35); ALBUMIN 3.21 g/dL (3.5-5.0); ALKALINE PHOSPHATASE 65.8 U/L (38-126); ASPARTATE AMINO TRANSFERASE 24.1 U/L (14-36); BILIRUBIN,TOTAL 0.83 mg/dL (0.2-1.3); CALCIUM 8.14 mg/dL (8.4-10.2); CARBON DIOXIDE 26.9 mmol/L (22-30.0); CHLORIDE 103.7 mmol/L (98-107); CREATININE 0.61 mg/dL (0.60-1.30); GLUCOSE 128.1 mg/dL (74-106); POTASSIUM 3.35 mmol/L (3.5-5.1); SODIUM 136.4 mmol/L (134.5-145); TOTAL PROTEIN 5.59 g/dL (6.3-8.2)
[2021-05-10] MEDS ORDERED: PROTONIX PO SCH (06:30)
[2021-05-10] MEDS: COZAAR PO SCH (08:12)
[2021-05-10] MEDS: ROCEPHIN 1 GM/50 ML D5W 1 GM/50 ML BAG IV SCH (08:12)
[2021-05-10] MEDS: TRANDATE PO SCH (08:12)
[2021-05-10] MEDS: CARDENE 20 MG/200 ML NACL 20 MG/200 ML BAG IV SCH (08:12)
[2021-05-10] MEDS ORDERED: NORVASC PO ONE (10:56)
[2021-05-10] MEDS: HUMULIN R SUBCUT PRN (12:37)
[2021-05-10 14:28] VITALS: BP 140/86; TEMP 97.9
--- NOTE | 2021-05-10 15:38 | PCM.DC ---
Final Diagnosis: Final dx: Accelerated hypertension with secondary renal infarction. Diabetic gastroparesis and GERD. Uncontrolled T2 diabetes Date of admit- 05/05/21 Date of discharge - 05/10/21 Physical Exam Appearance: Well-appearing and Obese Ill-appearing: None Pain Distress: None Eyes: KATRINA ENT: Oropharynx normal Neck: Supple Respiratory: Airway patent and Breath sounds clear Cardiovascular: RRR and Pulses normal GI/: Soft and Nontender Musculoskeletal: Normal strength and ROM intact Skin: Warm and Dry Neurological: Sensation intact, Motor intact and Alert Psychiatric: Affect appropriate and Mood appropriate (1) Accelerated hypertension: Status: Acute Code(s): I10 - Essential (primary) hypertension SNOMED Code(s): 24074661 (2) Nausea and vomiting: Status: Acute Code(s): R11.2 - Nausea with vomiting, unspecified SNOMED Code(s): 17018934 (3) DM type 2 (diabetes mellitus, type 2): Status: Acute Code(s): E11.9 - Type 2 diabetes mellitus without complications SNOMED Code(s): 91231882 (4) Renal disorder: Status: Acute Code(s): N28.9 - Disorder of kidney and ureter, unspecified SNOMED Code(s): 81964693 (5) Diabetic gastroparesis: Status: Acute Code(s): E11.43 - Type 2 diabetes mellitus with diabetic autonomic (poly)neuropathy; K31.84 - Gastroparesis SNOMED Code(s): 740905429 Reason for Hospitalization: Admitted via ER for nausea and vomiting refractory to standard management and accelerated HTN. Prognosis/Condition at Discharge: Good and stable. Medications at Discharge: Ambulatory Orders Medication Instructions Recorded lisinopril 10 mg tablet 10 mg PO DAILY 05/05/21 Unable to display the correct list of discharge medications. Lab/Diagnostics: Laboratory Tests 05/05/21 05/05/21 05/05/21 15:50 15:50 16:23 WBC 15.33 H RBC 4.89 Hgb 13.2 Hct 39.5 MCV 80.8 L MCH 27.0 MCHC 33.4 RDW Coeff of Yobani 13.9 Plt Count 233 Immature Gran % (Auto) 0.7 Neut % (Auto) 76.6 H Lymph % (Auto) 17.6 [place] % (Auto) 5.0 Eos % (Auto) 0.0 Baso % (Auto) 0.1 Neut # (Auto) 11.8 H Lymph # (Auto) 2.7 [place] # (Auto) 0.8 Eos # (Auto) 0.0 Baso # (Auto) 0.0 Immature Gran # (Auto) 0.1 Sodium 143.5 Potassium 3.63 Chloride 106.6 Carbon Dioxide 23.1 D Anion Gap 17.43 BUN 13.5 Creatinine 0.67 Estimated GFR (MDRD) 95.00 BUN/Creatinine Ratio 20.14 Glucose 308.8 H Hemoglobin A1c Calcium 9.28 Magnesium Total Bilirubin 0.68 AST 24.0 ALT 22.4 Alkaline Phosphatase 84.1 Total Creatine Kinase Troponin I Total Protein 7.40 Albumin 4.62 Globulin 2.78 Albumin/Globulin Ratio 1.66 Amylase 46.1 Lipase 11.8 L TSH Urine Color Urine Clarity Urine pH Ur Specific [place] Urine Protein Urine Glucose (UA) Urine Ketones Urine Blood Urine Nitrite Urine Bilirubin Urine Urobilinogen Ur Leukocyte Esterase Urine Microscopic RBC Urine Microscopic WBC Ur Squamous Epith Cells Urine Bacteria SARS CoV-2 RNA Rapid AZUL Negative 05/05/21 05/05/21 05/06/21 18:21 23:35 05:51 WBC 13.60 H RBC 4.41 Hgb 11.7 L Hct 36.0 L MCV 81.6 MCH 26.5 L MCHC 32.5 RDW Coeff of Yobani 14.1 Plt Count 191 Immature Gran % (Auto) 0.5 Neut % (Auto) 78.1 H Lymph % (Auto) 16.9 [place] % (Auto) 4.4 Eos % (Auto) 0.0 Baso % (Auto) 0.1 Neut # (Auto) 10.6 H Lymph # (Auto) 2.3 [place] # (Auto) 0.6 Eos # (Auto) 0.0 Baso # (Auto) 0.0 Immature Gran # (Auto) 0.1 Sodium Potassium Chloride Carbon Dioxide Anion Gap BUN Creatinine Estimated GFR (MDRD) BUN/Creatinine Ratio Glucose Hemoglobin A1c Calcium Magnesium Total Bilirubin AST ALT Alkaline Phosphatase Total Creatine Kinase 24.2 L Troponin I 0.013 Total Protein Albumin Globulin Albumin/Globulin Ratio Amylase Lipase TSH Urine Color Yellow Urine Clarity Clear Urine pH 5.5 Ur Specific [place] >=1.030 Urine Protein 2+ H Urine Glucose (UA) 2+ H Urine Ketones 4+ Urine Blood Trace-intact H Urine Nitrite Negative Urine Bilirubin Negative Urine Urobilinogen 0.2 Ur Leukocyte Esterase Negative Urine Microscopic RBC 0-2 Urine Microscopic WBC 5-10 Ur Squamous Epith Cells 5-10 Urine Bacteria Trace SARS CoV-2 RNA Rapid AZUL 05/06/21 05/06/21 05/07/21 05:51 05:51 05:01 WBC 11.26 H RBC 4.29 Hgb 11.5 L Hct 35.2 L MCV 82.1 MCH 26.8 L MCHC 32.7 RDW Coeff of Yobani 14.5 Plt Count 188 Immature Gran % (Auto) 0.6 Neut % (Auto) 72.3 Lymph % (Auto) 20.3 [place] % (Auto) 6.7 Eos % (Auto) 0.0 Baso % (Auto) 0.1 Neut # (Auto) 8.1 H Lymph # (Auto) 2.3 [place] # (Auto) 0.8 Eos # (Auto) 0.0 Baso # (Auto) 0.0 Immature Gran # (Auto) 0.1 Sodium 144.3 Potassium 3.52 Chloride 110.6 H Carbon Dioxide 25.3 Anion Gap 11.92 BUN 10.5 Creatinine 0.61 Estimated GFR (MDRD) 106.00 BUN/Creatinine Ratio 17.21 Glucose 307.3 H Hemoglobin A1c Calcium 8.61 Magnesium Total Bilirubin AST ALT Alkaline Phosphatase Total Creatine Kinase 31.4 Troponin I < 0.012 Total Protein Albumin Globulin Albumin/Globulin Ratio Amylase Lipase TSH Urine Color Urine Clarity Urine pH Ur Specific [place] Urine Protein Urine Glucose (UA) Urine Ketones Urine Blood Urine Nitrite Urine Bilirubin Urine Urobilinogen Ur Leukocyte Esterase Urine Microscopic RBC Urine Microscopic WBC Ur Squamous Epith Cells Urine Bacteria SARS CoV-2 RNA Rapid AZUL 05/07/21 05/08/21 05/08/21 05:01 00:01 09:53 WBC RBC Hgb Hct MCV MCH MCHC RDW Coeff of Yobani Plt Count Immature Gran % (Auto) Neut % (Auto) Lymph % (Auto) [place] % (Auto) Eos % (Auto) Baso % (Auto) Neut # (Auto) Lymph # (Auto) [place] # (Auto) Eos # (Auto) Baso # (Auto) Immature Gran # (Auto) Sodium 142.5 138.0 Potassium 3.22 L 3.54 Chloride 108.6 H 106.0 Carbon Dioxide 28.2 30.7 H Anion Gap 8.92 4.84 BUN 4.4 L 4.2 L Creatinine 0.54 L 0.53 L Estimated GFR (MDRD) 122.00 125.00 BUN/Creatinine Ratio 8.14 7.92 Glucose 316.6 H 288.6 H Hemoglobin A1c 9.60 H Calcium 8.38 L 7.90 L Magnesium 1.68 Total Bilirubin AST ALT Alkaline Phosphatase Total Creatine Kinase Troponin I Total Protein Albumin Globulin Albumin/Globulin Ratio Amylase Lipase TSH Urine Color Urine Clarity Urine pH Ur Specific [place] Urine Protein Urine Glucose (UA) Urine Ketones Urine Blood Urine Nitrite Urine Bilirubin Urine Urobilinogen Ur Leukocyte Esterase Urine Microscopic RBC Urine Microscopic WBC Ur Squamous Epith Cells Urine Bacteria SARS CoV-2 RNA Rapid AZUL 05/08/21 05/09/21 05/10/21 09:53 07:44 05:24 WBC 8.49 RBC 4.01 L Hgb 10.7 L Hct 33.3 L MCV 83.0 MCH 26.7 L MCHC 32.1 RDW Coeff of Yobani 14.4 Plt Count 148 Immature Gran % (Auto) 0.4 Neut % (Auto) 61.7 Lymph % (Auto) 31.1 [place] % (Auto) 6.8 Eos % (Auto) 0.0 Baso % (Auto) 0.0 Neut # (Auto) 5.2 Lymph # (Auto) 2.6 [place] # (Auto) 0.6 Eos # (Auto) 0.0 Baso # (Auto) 0.0 Immature Gran # (Auto) 0.0 Sodium Potassium Chloride Carbon Dioxide Anion Gap BUN Creatinine Estimated GFR (MDRD) BUN/Creatinine Ratio Glucose Hemoglobin A1c Calcium Magnesium Total Bilirubin AST ALT Alkaline Phosphatase Total Creatine Kinase Troponin I Total Protein Albumin Globulin Albumin/Globulin Ratio Amylase Lipase TSH 0.615 Urine Color Yellow Urine Clarity Clear Urine pH 5.5 Ur Specific [place] 1.015 Urine Protein Negative Urine Glucose (UA) 2+ H Urine Ketones 1+ H Urine Blood Negative Urine Nitrite Positive H Urine Bilirubin Negative Urine Urobilinogen 1.0 H Ur Leukocyte Esterase Trace H Urine Microscopic RBC Urine Microscopic WBC 10-20 Ur Squamous Epith Cells 2-5 Urine Bacteria 4+ SARS CoV-2 RNA Rapid AZUL 05/10/21 05:24 WBC RBC Hgb Hct MCV MCH MCHC RDW Coeff of Yobani Plt Count Immature Gran % (Auto) Neut % (Auto) Lymph % (Auto) [place] % (Auto) Eos % (Auto) Baso % (Auto) Neut # (Auto) Lymph # (Auto) [place] # (Auto) Eos # (Auto) Baso # (Auto) Immature Gran # (Auto) Sodium 136.4 Potassium 3.35 L Chloride 103.7 Carbon Dioxide 26.9 Anion Gap 9.15 BUN 5.0 L Creatinine 0.61 Estimated GFR (MDRD) 106.00 BUN/Creatinine Ratio 8.19 Glucose 128.1 H Hemoglobin A1c Calcium 8.14 L Magnesium Total Bilirubin 0.83 AST 24.1 ALT 34.6 Alkaline Phosphatase 65.8 Total Creatine Kinase Troponin I Total Protein 5.59 L Albumin 3.21 L Globulin 2.38 Albumin/Globulin Ratio 1.34 Amylase Lipase TSH Urine Color Urine Clarity Urine pH Ur Specific [place] Urine Protein Urine Glucose (UA) Urine Ketones Urine Blood Urine Nitrite Urine Bilirubin Urine Urobilinogen Ur Leukocyte Esterase Urine Microscopic RBC Urine Microscopic WBC Ur Squamous Epith Cells Urine Bacteria SARS CoV-2 RNA Rapid AZUL Education Provided to Patient and Family: HTN, DGP, GERD, DM Follow-ups: PCP next week. Discharge Disposition: Home Hospital Course: Patient presented to ER with nausea and vomiting, with extreme HTN, and uncontrolled DM. She had not had any routine medical care in a long time and had no medications at home. Admitted with IV med for vomiting and HTN, diabetes controlled with SS insulin. Vomiting eventually best controlled with reglan, likely has diabetic gastroparesis and GERD. Protonix and zofran prn used. BP quite difficult to control. Various med tried, eventual control with oral med after GI issues resolved. Work-up for secondary HTN done here since we were unable to transfer her, no beds available at multiple hospitals. Renin and aldosterone levels pending to help R/O hyperaldosteronism, renal US unremarkable, so CTA renal ordered which revealed no renal artery anomalies, but apparent infarcts to renal parenchyma, source unclear. Cardiac echo done, not throwing clots from heart, LVH o/w WNL. 24 hour urine for metanephrines sent out. This work-up and management discussed with a cardiac catheterization technician, no changes recommended. Blood sugar controlled with SS insulin, she prefers to be d/c with oral med. for DM. The renal infarcts per discussion with specialist are likely from severe HTN and no anticoagulation needed. Importance of close F/U stressed. D/C in stable and improved condition. Plan: Med as directed. diabetic diet. See primary health care provider DENNIS. This exam done [id number] with duration of 40 minutes including the discharge preparation.
[2021-05-15 02:11] LABS: 24 HR URINE METANEPHRINE 71 ug/24 hr (36-209); 24 HR URINE NORMETANEPHRINE 460 ug/24 hr (131-612); URINE METANEPHRINE 31 ug/L (Undefined); URINE NORMETANEPHRINE 200 ug/L (Undefined)
== END 2021-05-10 16:40 | disposition home or self-care (01) | DRG 305 ==
LOC: MEDSURG A 15:21 → ED 15:21 → MEDSURG A 17:57 → OBSVTOIN 17:57
PROVIDERS: ADMIT Internal Medicine Geriatric Medicine; ATTEND Emergency Medicine
DX: I10 Essential (primary) hypertension; N28.9 Disorder of kidney and ureter, unspecified; I77.3 Arterial fibromuscular dysplasia; R11.2 Nausea with vomiting, unspecified; N28.0 Ischemia and infarction of kidney; K31.84 Gastroparesis; E11.43 Type 2 diabetes mellitus with diabetic autonomic (poly)neuropathy; K21.9 Gastro-esophageal reflux disease without esophagitis